=== PATIENT | male | born 1980 | race Caucasian/White ===

== ENCOUNTER 2023-04-27 14:33 | Emergency (ER) | payer MEDICAID ==
[~2023-04-27] VITALS: Ht 182.9 cm; Wt 90.7 kg
[2023-04-27 16:23] VITALS: BP 145/98; TEMP 98.5; O2SAT 98
== END 2023-04-27 16:15 | disposition home or self-care (01) ==
LOC: ER 14:33 → EDBD 14:33 → ER 16:15
DX: J06.9 Acute upper respiratory infection, unspecified (principal); R50.9 Fever, unspecified; R05.9 Cough, unspecified; Z20.822 Contact with and (suspected) exposure to COVID-19
CPT/HCPCS: 99284; 71045; 87426; 87804 ×2; C9803